=== PATIENT | female | born 1990 ===

== ENCOUNTER 2020-11-12 15:40 | Emergency (ER) | payer BC ==
--- NOTE | 2020-11-12 16:22 | Emergency Department Report ---
ED Abdominal Pain HPI - General Chief Complaint: Abdominal Pain Stated Complaint: PAIN/BLEEDING 18WKS PREG Time Seen by Provider: 11/12/20 15:45 Source: patient Mode of arrival: Ambulatory Limitations: Language Barrier - History of Present Illness Initial Comments: This is a 29-year-old female nontoxic, well nourished in appearance, no acute signs of distress presents to the ED with c/o of left flank pain x several days. Denies any abdominal pain or pelvic pain. Patient stated that she is about 18 weeks . Denies any vaginal bleeding. Denies any urinary symptoms. Patient denies any n/v. Patient denies chest pain, short of breath, fever, hemoptysis, blood in stool, chills, headache, stiff neck, numbness or tingling. Patient denies any diarrhea or constipation. Denies any blood in stool. Patient denies any recent travels. Patient denies any allergies. Mrs. Dutta, Wallisian translation has been used during interview and physical exam. MD Complaint: flank pain -: days(s) Location: L flank Radiation: none Migration to: no migration Severity: mild Severity scale (0 -10): 8 Quality: cramping, aching Consistency: constant Improves With: nothing Worsens With: nothing Associated Symptoms: denies other symptoms. denies: nausea, vomiting, diarrhea, fever, chills, constipation, dysuria, hematemesis, hematochezia, melena, hematur ia, anorexia, syncope - Related Data Previous Rx's Medication Instructions Recorded Last Taken Type Acetaminophen [Acetaminophen 8 650 mg PO Q8H PRN #12 tablet.er 11/12/20 Unknown Rx Hour] Allergies Allergy/AdvReac Type Severity Reaction Status Date / Time No Known Allergies Allergy Unverified 11/12/20 15:44 ED Review of Systems ROS: Stated complaint: PAIN/BLEEDING 18WKS PREG Other details as noted in HPI Comment: All other systems reviewed and negative Constitutional: denies: chills, fever Eyes: denies: eye pain, eye discharge, vision change ENT: denies: ear pain, throat pain Respiratory: denies: cough, shortness of breath, wheezing Cardiovascular: denies: chest pain, palpitations Endocrine: no symptoms reported Gastrointestinal: denies: abdominal pain, nausea, diarrhea Genitourinary: denies: urgency, dysuria, discharge Musculoskeletal: denies: back pain, joint swelling, arthralgia Skin: denies: rash, lesions Neurological: denies: headache, weakness, paresthesias Psychiatric: denies: anxiety, depression Hematological/Lymphatic: denies: easy bleeding, easy bruising ED Past Medical Hx - Medications Home Medications: Home Medications Medication Instructions Recorded Confirmed Last Taken Type Acetaminophen [Acetaminophen 8 650 mg PO Q8H PRN #12 tablet.er 11/12/20 Unknown Rx Hour] ED Physical Exam - General Limitations: Language Barrier General appearance: alert, in no apparent distress - Head Head exam: Present: atraumatic, normocephalic - Eye Eye exam: Present: normal appearance - Neck Neck exam: Present: normal inspection, full ROM. Absent: tenderness, meningismus, lymphadenopathy - Respiratory Respiratory exam: Present: normal lung sounds bilaterally. Absent: respiratory distress, wheezes, rales, rhonchi, stridor, chest wall tenderness, accessory m uscle use, decreased breath sounds, prolonged expiratory - Cardiovascular Cardiovascular Exam: Present: regular rate, normal rhythm, normal heart sounds. Absent: irregular rhythm, systolic murmur, diastolic murmur, rubs, gallop - GI/Abdominal GI/Abdominal exam: Present: soft, normal bowel sounds. Absent: distended, ten derness, guarding, rebound, rigid, diminished bowel sounds - Extremities Exam Extremities exam: Present: normal inspection, full ROM - Back Exam Back exam: Present: normal inspection, full ROM, paraspinal tenderness (left throacic paraspinal area). Absent: tenderness, CVA tenderness (R), CVA tenderness (L), muscle spasm, vertebral tenderness, rash noted - Neurological Exam Neurological exam: Present: alert, oriented X3, normal gait - Psychiatric Psychiatric exam: Present: normal affect, normal mood - Skin Skin exam: Present: warm, dry, intact, normal color. Absent: rash ED Course Vital Signs 11/12/20 11/12/20 15:45 19:41 Temperature 98.1 F Pulse Rate 99 H Respiratory 16 16 Rate Blood Pressure 116/74 [Left] O2 Sat by Pulse 100 Oximetry - Reevaluation(s) Reevaluation #1: 11/12/20 16:22 Patient is speaking in full sentences with no signs of distress noted. ED Medical Decision Making - Lab Data Result diagrams: 11/12/20 15:48 11/12/20 15:48 Lab Results 11/12/20 11/12/20 11/12/20 Range/Units 15:48 15:48 15:48 WBC 10.4 (4.5-11.0) K/mm3 RBC 4.21 (3.65-5.03) M/mm3 Hgb 12.5 (10.1-14.3) gm/dl Hct 37.7 (30.3-42.9) % MCV 90 (79-97) fl MCH 30 (28-32) pg MCHC 33 (30-34) % RDW 16.3 H (13.2-15.2) % Plt Count 271 (140-440) K/mm3 Lymph % (Auto) 9.8 L (13.4-35.0) % Cannon % (Auto) 1.7 (0.0-7.3) % Eos % (Auto) 0.0 (0.0-4.3) % Baso % (Auto) 0.3 (0.0-1.8) % Lymph # (Auto) 1.0 L (1.2-5.4) K/mm3 Cannon # (Auto) 0.2 (0.0-0.8) K/mm3 Eos # (Auto) 0.0 (0.0-0.4) K/mm3 Baso # (Auto) 0.0 (0.0-0.1) K/mm3 Seg Neutrophils % 88.2 H (40.0-70.0) % Seg Neutrophils # 9.1 H (1.8-7.7) K/mm3 Sodium 136 L (137-145) mmol/L Potassium 4.3 (3.6-5.0) mmol/L Chloride 103.2 (98-107) mmol/L Carbon Dioxide 19 L (22-30) mmol/L Anion Gap 18 mmol/L BUN 4 L (7-17) mg/dL Creatinine 0.4 L (0.6-1.2) mg/dL Estimated GFR > 60 ml/min BUN/Creatinine Ratio 10 % Glucose 99 (65-100) mg/dL Calcium 9.6 (8.4-10.2) mg/dL Total Bilirubin 0.30 (0.1-1.2) mg/dL AST 29 (5-40) units/L ALT 58 H (7-56) units/L Alkaline Phosphatase 91 (35-129) units/L Total Protein 7.8 (6.3-8.2) g/dL Albumin 4.1 (3.9-5) g/dL Albumin/Globulin Ratio 1.1 % Lipase 28 (13-60) units/L HCG, Quant 79922 H (0-4) mIU/mL Urine Color (Yellow) Urine Turbidity (Clear) Urine pH (5.0-7.0) Ur Specific Batt[place] (1.003-1.030) Urine Protein (Negative) mg/dL Urine Glucose (UA) (Negative) mg/dL Urine Ketones (Negative) mg/dL Urine Blood (Negative) Urine Nitrite (Negative) Urine Bilirubin (Negative) Urine Urobilinogen (<2.0) mg/dL Ur Leukocyte Esterase (Negative) Urine WBC (Auto) (0.0-6.0) /HPF Urine RBC (Auto) (0.0-6.0) /HPF U Epithel Cells (Auto) (0-13.0) /HPF Urine Mucus /HPF 11/12/20 Range/Units Unknown WBC (4.5-11.0) K/mm3 RBC (3.65-5.03) M/mm3 Hgb (10.1-14.3) gm/dl Hct (30.3-42.9) % MCV (79-97) fl MCH (28-32) pg MCHC (30-34) % RDW (13.2-15.2) % Plt Count (140-440) K/mm3 Lymph % (Auto) (13.4-35.0) % Cannon % (Auto) (0.0-7.3) % Eos % (Auto) (0.0-4.3) % Baso % (Auto) (0.0-1.8) % Lymph # (Auto) (1.2-5.4) K/mm3 Cannon # (Auto) (0.0-0.8) K/mm3 Eos # (Auto) (0.0-0.4) K/mm3 Baso # (Auto) (0.0-0.1) K/mm3 Seg Neutrophils % (40.0-70.0) % Seg Neutrophils # (1.8-7.7) K/mm3 Sodium (137-145) mmol/L Potassium (3.6-5.0) mmol/L Chloride (98-107) mmol/L Carbon Dioxide (22-30) mmol/L Anion Gap mmol/L BUN (7-17) mg/dL Creatinine (0.6-1.2) mg/dL Estimated GFR ml/min BUN/Creatinine Ratio % Glucose (65-100) mg/dL Calcium (8.4-10.2) mg/dL Total Bilirubin (0.1-1.2) mg/dL AST (5-40) units/L ALT (7-56) units/L Alkaline Phosphatase (35-129) units/L Total Protein (6.3-8.2) g/dL Albumin (3.9-5) g/dL Albumin/Globulin Ratio % Lipase (13-60) units/L HCG, Quant (0-4) mIU/mL Urine Color Yellow (Yellow) Urine Turbidity Clear (Clear) Urine pH 6.0 (5.0-7.0) Ur Specific [place] 1.010 (1.003-1.030) Urine Protein <15 mg/dl (Negative) mg/dL Urine Glucose (UA) Neg (Negative) mg/dL Urine Ketones 80 (Negative) mg/dL Urine Blood Neg (Negative) Urine Nitrite Neg (Negative) Urine Bilirubin Neg (Negative) Urine Urobilinogen < 2.0 (<2.0) mg/dL Ur Leukocyte Esterase Neg (Negative) Urine WBC (Auto) 1.0 (0.0-6.0) /HPF Urine RBC (Auto) 12.0 (0.0-6.0) /HPF U Epithel Cells (Auto) < 1.0 (0-13.0) /HPF Urine Mucus Few /HPF - Radiology Data [facility] [address] [place] [address] Ultrasound Report Signed Patient: KEN PERALTA MR#: [id number] : 1990 Acct:[id number] Age/Sex: 29 / F ADM Date: 11/12/20 Loc: ED Attending Dr: Ordering Physician: RAYNA SHEA NP Date of Service: 11/12/20 Procedure(s): US OB >= 14 weeks Fetus Accession Number(s): [id number] cc: RAYNA SHEA NP ULTRASOUND OBSTETRIC INDICATION / CLINICAL INFORMATION: pain. Clinical Gestational Age (GA) in weeks, days: 18 weeks 2 days TECHNIQUE: Transabdominal and Transvaginal. COMPARISON: None available. FINDINGS: Single i ntrauterine . Biparietal Diameter = 4.3 cm = 19, 0 weeks, days Head Circumference = 15 point cm = 18, weeks, days Abdominal Circumference = routine cm = 18, 4 weeks, days Femur Length = 2.8 cm = 18, 4 weeks, days Average Ultrasound Age (AUA) = 18, 3 weeks, days Heart Rate: 146 beats per minute. Position: cephalic. Cervix: closed. Length in cm (if measured): 5 Placenta: posterior and marginal. Amniotic Fluid Volume: normal Maternal Adnexa: Large cystic lesion within the left adnexa which measures approximately 13 cm x 8.5 cm. Left ovary is not well visualized. IMPRESSION: 1. Single, living intrauterine with estimated sonographic age of 18, 3 weeks, days. 2. 8.5 x 13 cm homogeneous low-attenuation cystic lesion within the left adnexa, could reflect a large left ovarian cystic lesion. Left ovary is not well visualized. 3. No sonographic abnormality of the intrauterine fetus. Signer Name: Manny Mandel MD Signed: 11/12/2020 5:34 PM Workstation Name: [id number]- [id number] Transcribed By: SB Dictated By: MANNY MANDEL MD Electronically Authenticated By: MANNY MANDEL MD Signed Date/Time: 11/12/201733 DD/ 28 TD/TT: - Medical Decision Making This is a 29-year-old female that presents with left flank/back pains. Patient is stable and was examined by me. There is no abdominal tenderness. Negative sig ns of symptoms of appendicitis. Labs obtained. UA obtained. US OB obtained and dictated by the radiologist. Patient is notified of the report with no questions noted by the patient. Vital signs are stable prior to discharge. Patient received medical treatment in the ED which patient stated symptoms has resovled and subsided. A by mouth challenge has been obtained and patient tolerated well with no nausea vomiting. Patient was also instructed to Follow-up with a primary care and OBGYN doctor in 3-5 days or if symptoms worsen and continue return to emergency room as soon as possible. At time of discharge, the patient does not seem toxic or ill in appearance. No acute signs of distress noted. Patient agrees to discharge treatment plan of care. No further questions noted by the patient. Mrs. Dutta, Wallisian translation has been used during interview, physical exam, discharge instructions and treatments. Critical care attestation.: If time is entered above; I have spent that time in minutes in the direct care of this critically ill patient, excluding procedure time. ED Disposition Clinical Impression: Left flank pain Left-sided back pain Qualifiers: Back pain location: thoracic back pain Chronicity: acute Qualified Code(s): M54.6 - Pain in thoracic spine Disposition: HOME / SELF CARE / HOMELESS Is pt being admited?: No Does the pt Need Aspirin: No Condition: Stable Instructions: Abdominal Pain (ED) Additional Instructions: Follow-up with a primary care and OBGYN doctor in 3-5 days or if symptoms worsen and continue return to emergency room as soon as possible. Prescriptions: Acetaminophen [Acetaminophen 8 Hour] 650 mg PO Q8H PRN #12 tablet.er PRN Reason: Pain , Severe (7-10) Referrals: PRIMARY [facility] [Referring] - 3-5 Days ADELINA GARSIA MD [Staff Physician] - 3-5 Days [facility] [Provider Group] - 3-5 Days [facility] [Provider Group] - 3-5 Days Time of Disposition: 20:11
[2020-11-12 16:25] LABS: Alanine Aminotransferase 58 units/L (7-56); Albumin 4.1 g/dL (3.9-5); Blood Urea Nitrogen 4 mg/dL (7-17); Calcium 9.6 mg/dL (8.4-10.2); Hemolysis Index 7
[2020-11-12 16:26] LABS: Basophils % (Auto) 0.3 % (0.0-1.8); Hematocrit 37.7 % (30.3-42.9); Hemoglobin 12.5 gm/dl (10.1-14.3); Lymphocytes % (Auto) 9.8 % (13.4-35.0); Mean Corpuscular HGB Conc 33 % (30-34); Mean Corpuscular Volume 90 fl (79-97); Monocytes # (Auto) 0.2 K/mm3 (0.0-0.8); Monocytes % (Auto) 1.7 % (0.0-7.3); Platelet Count 271 K/mm3 (140-440); Red Blood Count 4.21 M/mm3 (3.65-5.03); Red Cell Distribution Width 16.3 % (13.2-15.2)
[2020-11-12 16:41] LABS: BUN/Creatinine Ratio 10
--- NOTE | 2020-11-12 17:38 | Ultrasound Report ---
ULTRASOUND OBSTETRIC INDICATION / CLINICAL INFORMATION: pain. Clinical Gestational Age (GA) in weeks, days: 18 weeks 2 days TECHNIQUE: Transabdominal and Transvaginal. COMPARISON: None available. FINDINGS: Single intrauterine . Biparietal Diameter = 4.3 cm = 19, 0 weeks, days Head Circumference = 15 point cm = 18, weeks, days Abdominal Circumference = routine cm = 18, 4 weeks, days Femur Length = 2.8 cm = 18, 4 weeks, days Average Ultrasound Age (AUA) = 18, 3 weeks, days Heart Rate: 146 beats per minute. Position: cephalic. Cervix: closed. Length in cm (if measured): 5 Placenta: posterior and marginal. Amniotic Fluid Volume: normal Maternal Adnexa: Large cystic lesion within the left adnexa which measures approximately 13 cm x 8.5 cm. Left ovary is not well visualized. IMPRESSION: 1. Single, living intrauterine with estimated sonographic age of 18, 3 weeks, days. 2. 8.5 x 13 cm homogeneous low-attenuation cystic lesion within the left adnexa, could reflect a larg e left ovarian cystic lesion. Left ovary is not well visualized. 3. No sonographic abnormality of the intrauterine fetus. Signer Name: Manny Mandel MD Signed: 11/12/2020 5:34 PM Workstation Name: [id number]
[2020-11-12] MEDS ORDERED: SODIUM CHLORIDE 0.9% 1000 ML 1,000 ML IV ONE (19:25)
[2020-11-12] MEDS ORDERED: ACETAMINOPHEN 500 MG TAB PO ONE (19:25)
[2020-11-12 19:29] LABS: Bilirubin,Urine NEG (Negative); Blood,Urine NEG (Negative); Color,Urine Yellow (Yellow); Mucus,Urine FEW /HPF; Protein,Urine <15 mg/dL mg/dL (Negative); Urobilinogen,Urine < 2.0 mg/dL (<2.0)
[2020-11-12 21:22] VITALS: BP 126/78
--- NOTE | 2020-11-13 07:57 | Ultrasound Report ---
CHEST 1 VIEW INDICATION: hypoxia. COMPARISON: One day prior. FINDINGS: Support devices: Unchanged. Heart: Stable. Lungs/Pleura: Very mild bilateral pulmonary opacities persist. No pneumothorax. IMPRESSION: 1. No significant change. Signer Name: Jose Kowalski MD Signed: 11/12/2020 6:16 AM Workstation Name: [id number]
== END 2020-11-12 21:15 | disposition home or self-care (01) ==
LOC: ED 15:40
DX: O26.892 Other specified pregnancy related conditions, second trimester (principal); R10.9 Unspecified abdominal pain; M54.89 Other dorsalgia; Z3A.18 18 weeks gestation of pregnancy
CPT/HCPCS: 36415; 76805; 76817; 80053; 81001; 83690; 84702; 85025; 96360; 99284; J7030; 76830